=== PATIENT | male | born 1985 | race American Indian/Alaskan Native ===

== ENCOUNTER 2017-01-09 15:57 | Emergency (ER) | payer OTHER ==
--- NOTE | 2017-01-09 16:19 | Emergency Department Report ---
Chief Complaint: Nausea/Vomiting/Diarrhea Stated Complaint: NAUSEA/VOMITING/DIARRHEA Time Seen by Provider: 01/09/17 16:16 - HPI History of Present Illness: pt c/o n/v/d x 2 weeks PT states he is throwing up at least 3 times a day - ROS Review of Systems: + n/v/d -dysuria - Exam Physical Exam: PT looks well, non toxic gcs 15 abd soft, no rebound, no guarding + lower abd tenderness MSE screening note: Focused history and physical exam performed. Due to findings the following was ordered: labs ED Disposition for MSE Condition: Stable
[2017-01-09 16:23] VITALS: BP 146/83
[2017-01-09] MEDS ORDERED: NACL 0.9% 1000 ML 1,000 ML IV ONE (17:16)
--- NOTE | 2017-01-09 17:17 | Emergency Department Report ---
ED N/V/D HPI - General Chief complaint: Nausea/Vomiting/Diarrhea Stated complaint: NAUSEA/VOMITING/DIARRHEA Time Seen by Provider: 01/09/17 16:16 Source: patient Mode of arrival: Ambulatory Limitations: No Limitations - History of Present Illness Initial comments: Patient reports nausea and vomiting and diarrhea for 2 weeks. Denies any blood in his stool or vomiting. He states that his abdomen is from him falling out. Denies any painful urination, hematuria, urgency or frequency. Denies any fever or chills. He stated that he vomited 2-3 times today. One diarrhea stool yesterday. No [id number] medication taken and his pain to his abdomen is 10 out of 10. He said it only hurts when he vomits and it feels sore. He denies EtOH use. MD complaint: nausea, vomiting, diarrhea, abdominal pain Onset/Timin -: week(s) Description of Vomiting: food contents Description of Diarrhea: water Associated Abdominal Pain: Yes Location: [place] (only vomited) Radiation: none Pain Scale: 10 Quality: other (sore) Consistency: intermittent Improves with: rest Worsens with: vomiting Context: possible food poisoning Associated Symptoms: loss of appetite, nausea/vomiting. denies: myalgias, chest pain, cough, diaphoresis, fever/chills, headaches, malaise, rash, dysuria , shortness of breath, syncope, weakness - Related Data Previous Rx's Medication Instructions Recorded Last Taken Type Butalbit/Acetamin/Caff/Codeine 1 cap PO Q8HR PRN #15 cap 07/14/16 Unknown Rx [Fioricet/Codeine 09-805-52-30] Promethazine [Phenergan TAB] 25 mg PO Q8HR PRN #12 tab 01/09/17 Unknown Rx Allergies Allergy/AdvReac Type Severity Reaction Status Date / Time No Known Allergies Allergy Unverified 05/21/16 17:45 ED Review of Systems ROS: Stated complaint: NAUSEA/VOMITING/DIARRHEA Other details as noted in HPI Comment: All other systems reviewed and negative Constitutional: no symptoms reported Eyes: denies: eye pain, eye discharge Respiratory: no symptoms reported Cardiovascular: denies: chest pain, palpitations, edema, syncope Gastrointestinal: denies: abdominal pain, nausea, vomiting, diarrhea, constipation, hematemesis, melena, hematochezia Genitourinary: denies: urgency, dysuria, frequency, hematuria, discharge, testicular pain, testicular mass Musculoskeletal: denies: back pain, arthralgia Skin: denies: rash Neurological: denies: headache, weakness, numbness, paresthesias, confusion, abnormal gait, vertigo ED Past Medical Hx - Past Medical History Previous Medical History?: Yes Hx Headaches / Migraines: Yes Additional medical history: Ocassional headaches - Surgical History Past Surgical History?: No - Family History Family history: no significant - Social History Smoking Status: Never Smoker Substance Use Type: Marijuana - Medications Home Medications: Home Medications Medication Instructions Recorded Confirmed Last Taken Type Butalbit/Acetamin/Caff/Codeine 1 cap PO Q8HR PRN #15 cap 07/14/16 Unknown Rx [Fioricet/Codeine 20-912-07-30] Promethazine [Phenergan TAB] 25 mg PO Q8HR PRN #12 tab 01/09/17 Unknown Rx ED Physical Exam - General Limitations: No Limitations General appearance: alert, in no apparent distress - Head Head exam: Present: atraumatic, normocephalic, normal inspection - Eye Eye exam: Present: normal appearance, PERRL, EOMI. Absent: conjunctival injection, nystagmus, periorbital swelling, periorbital tenderness Pupils: Present: normal accommodation - ENT ENT exam: Present: normal exam, normal orophraynx, mucous membranes moist, TM's normal bilaterally, normal external ear exam - Neck Neck exam: Present: normal inspection, full ROM. Absent: tenderness, meningismus, lymphadenopathy - Respiratory Respiratory exam: Present: normal lung sounds bilaterally. Absent: respiratory distress, chest wall tenderness - Cardiovascular Cardiovascular Exam: Present: regular rate, normal rhythm, normal heart sounds - GI/Abdominal GI/Abdominal exam: Present: soft, distended (mid abdomen), normal bowel sounds. Absent: tenderness, guarding, rebound, rigid - Extremities Exam Extremities exam: Present: normal inspection, full ROM, normal capillary refill. Absent: tenderness, pedal edema, joint swelling, calf tenderness - Back Exam Back exam: Present: normal inspection, full ROM. Absent: tenderness, CVA tenderness (R), CVA tenderness (L), muscle spasm, paraspinal tenderness, vertebral tenderness, rash noted - Neurological Exam Neurological exam: Present: alert, oriented X3, normal gait, reflexes normal. Absent: motor sensory deficit - Psychiatric Psychiatric exam: Present: normal affect, normal mood - Skin Skin exam: Present: warm, dry, intact, normal color. Absent: rash ED Course Vital Signs 01/09/17 16:16 Temperature 98.3 F Pulse Rate 73 Respiratory 16 Rate Blood Pressure 146/83 O2 Sat by Pulse 100 Oximetry - Reevaluation(s) Reevaluation #1: 01/09/17 20:15 Upon reevaluation of the abdomen patient has no changes in abdominal exam. Patient given 1 L of IV fluid and is able to tolerate oral liquids in the emergency room. He was also given Zofran 4 mg IV. ED Medical Decision Making - Lab Data Result diagrams: 01/09/17 17:28 01/09/17 17:28 Lab Results 01/09/17 01/09/17 01/09/17 Range/Units 17:28 17:28 17:30 WBC 8.9 (4.5-11.0) K/mm3 RBC 4.43 (3.65-5.03) M/mm3 Hgb 14.2 (11.8-15.2) gm/dl Hct 42.2 (35.5-45.6) % MCV 95 H (84-94) fl MCH 32 (28-32) pg MCHC 34 (32-34) % RDW 13.1 L (13.2-15.2) % Plt Count 173 (140-440) K/mm3 Lymph % (Auto) 24.7 (13.4-35.0) % [place] % (Auto) 4.1 (0.0-7.3) % Eos % (Auto) 0.9 (0.0-4.3) % Baso % (Auto) 0.3 (0.0-1.8) % Lymph # 2.2 (1.2-5.4) K/mm3 [place] # 0.4 (0.0-0.8) K/mm3 Eos # 0.1 (0.0-0.4) K/mm3 Baso # 0.0 (0.0-0.1) K/mm3 Seg Neutrophils % 70.0 (40.0-70.0) % Seg Neutrophils # 6.2 (1.8-7.7) K/mm3 Sodium 141 (137-145) mmol/L Potassium 4.3 (3.6-5.0) mmol/L Chloride 100.1 (98-107) mmol/L Carbon Dioxide 29 (22-30) mmol/L Anion Gap 16 mmol/L BUN 13 (9-20) mg/dL Creatinine 1.2 (0.8-1.5) mg/dL Estimated GFR > 60 ml/min BUN/Creatinine Ratio 10.83 % Glucose 98 (75-100) mg/dL Calcium 9.3 (8.4-10.2) mg/dL Total Bilirubin 0.20 (0.1-1.2) mg/dL AST 19 (5-40) units/L ALT 8 (7-56) units/L Alkaline Phosphatase 42 (35-129) units/L Total Protein 7.6 (6.3-8.2) g/dL Albumin 4.3 (3.9-5) g/dL Albumin/Globulin Ratio 1.3 % Lipase 17 (13-60) units/L Urine Color Yellow (Yellow) Urine Turbidity Clear (Clear) Urine pH 6.0 (5.0-7.0) Ur Specific [place] 1.024 (1.003-1.030) Urine Protein <15 mg/dl (Negative) mg/dL Urine Glucose (UA) Neg (Negative) mg/dL Urine Ketones Tr (Negative) mg/dL Urine Blood Neg (Negative) Urine Nitrite Neg (Negative) Urine Bilirubin Neg (Negative) Urine Urobilinogen < 2.0 (<2.0) mg/dL Ur Leukocyte Esterase Neg (Negative) Urine WBC (Auto) < 1.0 (0.0-6.0) /HPF Urine RBC (Auto) 5.0 (0.0-6.0) /HPF U Epithel Cells (Auto) < 1.0 (0-13.0) /HPF Urine Mucus Few /HPF - Radiology Data Radiology results: report reviewed CT scan of the abdomen and pelvis with IV contrast shows appendix appeared within normal limits, no free fluid or inflammatory changes are seen in the abdomen or pelvis. Liver ,gallbladder, pancreas, spleen and adrenal glands appear normal aorta is normal in caliber. Bladder is decompressed. - Medical Decision Making Course: I discussed the patient with lab results and told that his hearing showed carious teeth which showed at least mildly dehydrated but otherwise all labs are within normal limits including his hearing. Discussed with him that his CT scan was normal. Patient with nausea vomiting diarrhea and abdominal pain from vomiting and also 2 weeks. Treated in emergency room one half normal saline, Zofran 4 mg IV and Toradol 30 mg IV. He tolerated oral liquids and he said he felt better. She has no episode of nausea vomiting or diarrhea in emergency room. Discharged home with prescription for Phenergan and to follow- up with GI doctor in 2-3 days. Critical care attestation.: If time is entered above; I have spent that time in minutes in the direct care of this critically ill patient, excluding procedure time. ED Disposition Clinical Impression: Nausea vomiting and diarrhea, Abdominal pain in male Disposition: DC-01 TO HOME OR SELFCARE Is pt being admited?: No Does the pt Need Aspirin: No Condition: Stable Instructions: Abdominal Pain (ED), Acute Nausea and Vomiting (ED), Acute Diarrhea (ED), Gastroenteritis (ED), Nutrition Tips for Relief of Diarrhea (ED) Additional Instructions: over the next 72 hours, eat a banana, rice, applesauce and toast. Over the next Please avoid acidic food. Follow-up with doctor as recommended Increase fluid intake. Prescriptions: Promethazine [Phenergan TAB] 25 mg PO Q8HR PRN #12 tab PRN Reason: Nausea Referrals: PRIMARY CARE, [Primary Care Provider] - 2-3 Days [facility] [Provider Group] - 2-3 Days Forms: Accompanied Note, Work/School Release Form(ED)
[2017-01-09 17:47] LABS: Basophils % (Auto) 0.3 % (0.0-1.8); Eosinophils % (Auto) 0.9 % (0.0-4.3); Hematocrit 42.2 % (35.5-45.6); Hemoglobin 14.2 gm/dl (11.8-15.2); Mean Corpuscular HGB Conc 34 % (32-34); Mean Corpuscular Hemoglobin 32 pg (28-32); Mean Corpuscular Volume 95 fl (84-94); Platelet Count 173 K/mm3 (140-440); Red Blood Count 4.43 M/mm3 (3.65-5.03); Red Cell Distribution Width 13.1 % (13.2-15.2); White Blood Count 8.9 K/mm3 (4.5-11.0)
[2017-01-09 17:50] LABS: Bilirubin,Urine NEG (Negative); Blood,Urine NEG (Negative); Ketones,Urine TR mg/dL (Negative); Leukocyte Esterase,Urine NEG (Negative); Mucus,Urine FEW /HPF; Nitrite,Urine NEG (Negative); Protein,Urine <15 mg/dL mg/dL (Negative); Urobilinogen,Urine < 2.0 mg/dL (<2.0); WBC,Urine < 1.0 /HPF (0.0-6.0)
[2017-01-09 17:59] LABS: Alanine Aminotransferase 8 units/L (7-56); Albumin 4.3 g/dL (3.9-5); Albumin/Globulin Ratio 1.3 %; Alkaline Phosphatase 42 units/L (35-129); Anion Gap 16 mmol/L; BUN/Creatinine Ratio 10.83; Blood Urea Nitrogen 13 mg/dL (9-20); Calcium 9.3 mg/dL (8.4-10.2); Carbon Dioxide 29 mmol/L (22-30); Chloride 100.1 mmol/L (98-107); Glucose 98 mg/dL (75-100); Lipase 17 units/L (13-60); Potassium 4.3 mmol/L (3.6-5.0); Sodium 141 mmol/L (137-145); Total Protein 7.6 g/dL (6.3-8.2)
[2017-01-09] MEDS ORDERED: ZOFRAN IV NR (18:00)
[2017-01-09] MEDS ORDERED: TORADOL IV ONE (18:18)
--- NOTE | 2017-01-09 19:06 | Cat Scan Report ---
FINAL REPORT EXAM: CT ABDOMEN PELVIS W CON HISTORY: abdominal pain TECHNIQUE: Serial axial images through the abdomen and pelvis with coronal and sagittal reconstruction. Intravenous administration of 100 milliliters Omnipaque 300 PRIORS: None. FINDINGS: There is mild atelectasis in the dependent portion of the left lung base. No pleural effusion is seen. The liver, gallbladder, pancreas, spleen and adrenal glands appear within normal limits. There is a hypodense focus in the left kidney which is too small to definitely characterize. Right kidney appears within normal limits. Aorta is normal in caliber. Duplication of the inferior vena cava is noted. Bladder is decompressed. No free fluid. The appendix can be seen series 4, image 62 for example. It appears normal in caliber. No gross bowel abnormality is identified. No acute osseous abnormality is identified. IMPRESSION: 1. Appendix appears within normal limits. 2. No free fluid or inflammatory changes are seen in the abdomen or pelvis.
== END 2017-01-09 21:14 | disposition home or self-care (01) ==
LOC: ED 15:57
DX: R11.2 Nausea with vomiting, unspecified (principal); R10.9 Unspecified abdominal pain; R19.7 Diarrhea, unspecified; F12.10 Cannabis abuse, uncomplicated
CPT/HCPCS: 36415; 74177; 80053; 81001; 83690; 85025; 96361; 96374; 96375; 99284; J1885; J2405; J7030; Q9967; 87086

== ENCOUNTER 2017-04-27 08:35 | Emergency (ER) | payer SELFPAY ==
[2017-04-27] MEDS ORDERED: BENADRYL IV ONE (11:20)
[2017-04-27] MEDS ORDERED: NACL 0.9% 1000 ML 1,000 ML IV ONE (11:20)
[2017-04-27] MEDS ORDERED: REGLAN IV ONE (11:20)
--- NOTE | 2017-04-27 11:49 | Emergency Department Report ---
ED Headache HPI - General Chief Complaint: Headache Stated Complaint: SOB,HEADACHE Time Seen by Provider: 04/27/17 11:07 Source: patient Exam Limitations: no limitations - History of Present Illness Initial Comments: This is a 32-year-old male nontoxic, well nourished in appearance, no acute signs of distress presents to the ED complaining of chronic headache. Agitated today's ago he developed headache again taking Excedrin Migraine with minimal to no relief. Patient denies any trauma to the region. Denies loss consciousness. Denies stiff neck, blurry vision, chest pain, shortness of breath, numbness, tingling, fever, chills, abdominal pain, nausea or vomiting. Patient describes headache as diffuse level of. Patient denies thunderclap headache. Patient denies worse headache ever and stated this is a normal headache for him. Denies any drug allergies. Past medical history includes migraine headaches. Timing/Duration: episodic Quality: moderate Head Injury Location: other (diffuse) Recent Head Trauma: no recent headache/trauma, frequent headaches, chronic headaches, occasional headaches Associated Symptoms: denies symptoms. denies: confusion, fatigue, facial pain, fever/chills, flushing, loss of consciousness, nausea/vomiting, nasal congestion , nasal drainage, numbness in legs/feet, rash, seizures, sinus infection, stiff neck, vision changes, weakness Allergies/Adverse Reactions: Allergies No Known Allergies Allergy (Unverified 05/21/16 17:45) Home Medications: Ambulatory Orders Butalbit/Acetamin/Caff/Codeine [Fioricet/Codeine 05-796-34-30] 1 cap PO Q8HR PRN #15 cap 07/14/16 Promethazine [Phenergan TAB] 25 mg PO Q8HR PRN #12 tab 01/09/17 Butalb/Acetamin/Caff 50-325-40 [Fioricet] 1 tab PO Q6HR PRN #30 tab 04/27/17 ED Review of Systems ROS: Stated complaint: SOB,HEADACHE Other details as noted in HPI Constitutional: denies: chills, fever Eyes: denies: eye pain, eye discharge, vision change ENT: denies: ear pain, throat pain Respiratory: denies: cough, shortness of breath, wheezing Cardiovascular: denies: chest pain, palpitations Endocrine: no symptoms reported Gastrointestinal: denies: abdominal pain, nausea, diarrhea Genitourinary: denies: urgency, dysuria Musculoskeletal: denies: back pain, joint swelling, arthralgia Skin: denies: rash, lesions Neurological: denies: headache, weakness, paresthesias Psychiatric: denies: anxiety, depression Hematological/Lymphatic: denies: easy bleeding, easy bruising ED Past Medical Hx - Past Medical History Previous Medical History?: Yes Hx Headaches / Migraines: Yes Additional medical history: Ocassional headaches - Surgical History Past Surgical History?: No - Social History Smoking Status: Current Every Day Smoker Substance Use Type: None - Medications Home Medications: Home Medications Medication Instructions Recorded Confirmed Last Taken Type Butalbit/Acetamin/Caff/Codeine 1 cap PO Q8HR PRN #15 cap 07/14/16 Unknown Rx [Fioricet/Codeine 22-887-17-30] Promethazine [Phenergan TAB] 25 mg PO Q8HR PRN #12 tab 01/09/17 Unknown Rx Butalb/Acetamin/Caff 50-325-40 1 tab PO Q6HR PRN #30 tab 04/27/17 Unknown Rx [Fioricet] ED Physical Exam - General Limitations: No Limitations General appearance: alert, in no apparent distress - Head Head exam: Present: atraumatic, normocephalic - Eye Eye exam: Present: normal appearance, PERRL, EOMI. Absent: scleral icterus, conjunctival injection, nystagmus, periorbital swelling, periorbital tenderness Pupils: Present: normal accommodation. Absent: unequal, miosis - ENT ENT exam: Present: normal exam, normal orophraynx, mucous membranes moist, TM's normal bilaterally, normal external ear exam - Neck Neck exam: Present: normal inspection, full ROM. Absent: tenderness, meningismus, lymphadenopathy, thyromegaly - Respiratory Respiratory exam: Present: normal lung sounds bilaterally. Absent: respiratory distress, wheezes, rales, rhonchi, stridor, chest wall tenderness, accessory muscle use, decreased breath sounds, prolonged expiratory - Cardiovascular Cardiovascular Exam: Present: regular rate, normal rhythm, normal heart sounds. Absent: bradycardia, tachycardia, irregular rhythm, systolic murmur, diastolic murmur, rubs, gallop - GI/Abdominal GI/Abdominal exam: Present: soft, normal bowel sounds. Absent: distended, tenderness, guarding, rebound, rigid, diminished bowel sounds - Rectal Rectal exam: Present: deferred - Extremities Exam Extremities exam: Present: normal inspection, full ROM, normal capillary refill. Absent: tenderness, pedal edema, joint swelling, calf tenderness - Back Exam Back exam: Present: normal inspection, full ROM. Absent: tenderness, CVA tenderness (R), CVA tenderness (L), muscle spasm, paraspinal tenderness, vertebral tenderness, rash noted - Neurological Exam Neurological exam: Present: alert, oriented X3, CN II-XII intact, normal gait, reflexes normal - Expanded Neurological Exam Expanded Patient oriented to: Present: person, place, time Speech: Present: fluid speech Cranial nerves: EOM's Intact: Normal, Gag Reflex: Normal, Tongue Deviation: Normal, Nystagmus: Normal, Facial Sensation: Normal, Facial Palsy with Forehead Movement: Normal, Facial Palsy without Forehead Movement: Normal Cerebellar function: Finger to Nose: Normal, Heel to Pires: Normal, Romberg: Normal Upper motor neuron: Praveen Neglect: Normal, Pronator Drift: Normal, Babinski Sign : Normal, Sensory Extinction: Normal Sensory exam: Upper Extremity Light Touch: Normal, Upper Extremity Pin Prick: Normal, Upper Extremity Temperature: Normal, UE 2 Point Discrimination: Normal, Lower Extremity Light Touch: Normal, Lower Extremity Pin Prick: Normal, Lower Extremity Temperature: Normal, LE 2 Point Discrimination: Normal Motor strength exam: RUE: 5, LUE: 5, RLE: 5, LLE: 5 DTR: bicep (R): 2+, bicep (L): 2+, tricep (R): 2+, tricep (L): 2+, knee (R): 2+ , knee (L): 2+, ankle (R): 2+, ankle (L): 2+ Best Eye Response (Raj): (4) open spontaneously Best Motor Response (Raj): (6) obeys commands Best Verbal Response (Raj): (5) oriented [place] Total: 15 - Psychiatric Psychiatric exam: Present: normal affect, normal mood - Skin Skin exam: Present: warm, dry, intact, normal color. Absent: rash ED Course Vital Signs 04/27/17 04/27/17 08:46 11:53 Temperature 98 F Pulse Rate 82 Respiratory 16 Rate Blood Pressure 134/84 O2 Sat by Pulse 99 Oximetry - Reevaluation(s) Reevaluation #1: 04/27/17 11:47 Patient is speaking in full sentences with no signs of distress noted. Reevaluation #2: 04/27/17 13:09 Patient stated headache is not subsided after medical treatment. CT of head order and pending results. ED Medical Decision Making - Medical Decision Making Patient is stable and was examined by me. This is a 32-year-old male that presents with chronic headaches. Patient received Benadryl, Pepcid and normal saline IV. Headache has subsided after Benadryl, Pepcid and normal saline so a CT scan has been ordered and dictated by radiologist with normal results and no abnormalities. Patient notified of CT results with noted. Patient then received morphine in the ED. Patient stated headache has subsided after morphine and denies any current headache. Patient's boss is here with the name of Mainor as that he'll go the patient home after discharge. Patient received Fioricet at discharge with a follow-up with a neurologist and primary care doctor. Patient was instructed to follow-up with a primary care doctor in 3-5 days or if symptoms worsen and continue return to emergency room as soon as possible possible. At time time of discharge, the patient does not seem toxic or ill in appearance. No acute signs of distress noted. Patient agrees to discharge treatment plan of care. No further questions noted by the patient. Critical care attestation.: If time is entered above; I have spent that time in minutes in the direct care of this critically ill patient, excluding procedure time. ED Disposition Clinical Impression: Headache Qualifiers: Headache type: unspecified Headache chronicity pattern: chronic headache Intractability: not intractable Qualified Code(s): R51 - Headache Disposition: DC-01 TO HOME OR SELFCARE Is pt being admited?: No Does the pt Need Aspirin: No Condition: Stable Instructions: Butalbital/Acetaminophen/Caffeine (By mouth), Acute Headache (ED) Additional Instructions: Follow-up with a primary care doctor/neurologist in 3-5 days or if symptoms worsen and continue return to emergency room as soon as possible possible. Data operate any machinery after discharged due to sedation/drowsiness of morphine and Benadryl that he received in the ED and had her boss Mainor drive home as instructed. Prescriptions: Butalb/Acetamin/Caff 50-325-40 [Fioricet] 1 tab PO Q6HR PRN #30 tab PRN Reason: Headache Referrals: PRIMARY CAREMD [Primary Care Provider] - 3-5 Days CHARANJIT TEE MD [Staff Physician] - 3-5 Days [facility] [Outside] - 3-[address] [facility] [Outside] - 3-5 Days Forms: Work/School Release Form(ED)
[2017-04-27] MEDS ORDERED: MORPHINE IV ONE (13:15)
[2017-04-27] MEDS ORDERED: MORPHINE ONE (13:20)
--- NOTE | 2017-04-27 13:21 | Cat Scan Report ---
CT scan of head without IV contrast: History: Headache. Findings: Ventricles are normal in size and midline in location. No evidence of acute ischemia, hemorrhage or mass. No extra-axial fluid collection. Normal brainstem and cerebellum Normal sinuses and mastoid air cells. Impression: No acute intracranial abnormality.
[2017-04-27 13:44] VITALS: BP 131/93
== END 2017-04-27 13:44 | disposition home or self-care (01) ==
LOC: ED 08:35
DX: G43.909 Migraine, unspecified, not intractable, without status migrainosus (principal); F17.210 Nicotine dependence, cigarettes, uncomplicated
CPT/HCPCS: 70450; 96361; 96374; 96375; 99284; J1200; J2270; J2765; J7030

== ENCOUNTER 2017-08-19 03:31 | Emergency (ER) | payer SELFPAY ==
[2017-08-19 04:08] VITALS: BP 121/82
[2017-08-19] MEDS ORDERED: TYLENOL ONE (05:19)
[2017-08-19] MEDS ORDERED: TYLENOL PO ONE (05:23)
--- NOTE | 2017-08-19 06:15 | XRay Report ---
FINAL REPORT EXAM: XR SPINE LUMBOSACRAL 2-3V HISTORY: fall TECHNIQUE: Three views of the lumbar spine were submitted. FINDINGS: The disc heights and alignment appear normal. There is no evidence of fracture. The SI joints appear normal. There are phleboliths along the floor of the pelvis. IMPRESSION: Within normal limits
--- NOTE | 2017-08-19 06:15 | XRay Report ---
FINAL REPORT EXAM: XR SPINE THORACIC 2V HISTORY: fall TECHNIQUE: AP and lateral views of the thoracic spine were obtained. FINDINGS: The disc heights and alignment appear normal. There is no evidence of fracture. The soft tissue lines are well maintained IMPRESSION: Within normal limits.
--- NOTE | 2017-08-19 06:15 | XRay Report ---
FINAL REPORT EXAM: XR SPINE CERVICAL 2-3V HISTORY: neck pain post fall TECHNIQUE: Three views of the cervical spine were submitted. FINDINGS: The vertebral bodies are normal height alignment with preservation of the disc spaces. The prevertebral soft tissues and C1-C2 articulation appear intact IMPRESSION: Within normal limits
--- NOTE | 2017-08-19 06:16 | Cat Scan Report ---
FINAL REPORT EXAM: CT HEAD/BRAIN WO CON HISTORY: fall TECHNIQUE: Routine axial imaging was obtained of the brain without IV contrast. Comparison is made to the study of 04/27/2017. FINDINGS: There is no evidence of acute stroke or hemorrhage. The ventricular system is appropriate in size and is symmetric. There are no extra-axial fluid collections. The basal cisterns appear normal. The sinuses reveal a small polyp in the left maxillary sinus. The mastoid air cells are well pneumatized. There is no evidence of skull fracture. IMPRESSION: No acute intracranial process.
[2017-08-19] MEDS ORDERED: TORADOL IM ONE (08:01)
--- NOTE | 2017-08-19 08:05 | Emergency Department Report ---
ED Fall HPI - General Chief Complaint: Fall Stated Complaint: HEAD INJURY Time Seen by Provider: 08/19/17 07:52 Source: patient Mode of arrival: Ambulatory Limitations: No Limitations - History of Present Illness Initial Comments: This is a 32-year-old male who was previously unknown to this provider, presents to the ER with left-sided headache after mechanical trip and fall. No preceding symptoms before the fall. Headache is described as pressure-like and lightninglike. To me the patient makes no complaints of numbness or change in sensation. The headache does not have exacerbating or relieving factors. MD Complaint: fall -: Sudden Fall From: standing Fall Witnessed: no Place Fall Occurred: street Loss of Consciousness: none Prolonged Down Time?: no Symptoms Prior to Fall: none Location: head Severity: mild Quality: burning Context: tripped/slipped Associated Symptoms: headache. denies: neck pain, numbness, weakness, chest paint, shortness of breath, abdominal pain, hematuria, lightheaded, vertigo, confusion - Related Data Previous Rx's Medication Instructions Recorded Last Taken Type Butalbit/Acetamin/Caff/Codeine 1 cap PO Q8HR PRN #15 cap 07/14/16 Unknown Rx [Fioricet/Codeine 74-443-69-30] Promethazine [Phenergan TAB] 25 mg PO Q8HR PRN #12 tab 01/09/17 Unknown Rx Butalb/Acetamin/Caff 50-325-40 1 tab PO Q6HR PRN #30 tab 04/27/17 Unknown Rx [Fioricet] Acetaminophen [Tylenol Arthritis] 650 mg PO Q6HR PRN #30 tablet.er 08/19/17 Unknown Rx Ibuprofen [Motrin] 600 mg PO Q8H PRN #30 tablet 08/19/17 Unknown Rx Allergies Allergy/AdvReac Type Severity Reaction Status Date / Time No Known Allergies Allergy Unverified 05/21/16 17:45 ED Review of Systems ROS: Stated complaint: HEAD INJURY Other details as noted in HPI ED Past Medical Hx - Past Medical History Hx Headaches / Migraines: Yes Additional medical history: Ocassional headaches - Social History Smoking Status: Current Some Day Smoker - Medications Home Medications: Home Medications Medication Instructions Recorded Confirmed Last Taken Type Butalbit/Acetamin/Caff/Codeine 1 cap PO Q8HR PRN #15 cap 07/14/16 Unknown Rx [Fioricet/Codeine 42-044-17-30] Promethazine [Phenergan TAB] 25 mg PO Q8HR PRN #12 tab 01/09/17 Unknown Rx Butalb/Acetamin/Caff 50-325-40 1 tab PO Q6HR PRN #30 tab 04/27/17 Unknown Rx [Fioricet] Acetaminophen [Tylenol Arthritis] 650 mg PO Q6HR PRN #30 tablet.er 08/19/17 Unknown Rx Ibuprofen [Motrin] 600 mg PO Q8H PRN #30 tablet 08/19/17 Unknown Rx ED Physical Exam - General Limitations: No Limitations General appearance: alert, in no apparent distress - Head Head exam: Present: atraumatic, normocephalic - Eye Eye exam: Present: normal appearance, PERRL, EOMI, other (visual acuity intact to finger counting, color perception, reading at a close distance). Absent: nystagmus - ENT ENT exam: Present: normal exam, normal orophraynx, mucous membranes moist, TM's normal bilaterally, normal external ear exam, other (negative nasal septal hematoma. Negative hemotympanum) - Neck Neck exam: Present: normal inspection, full ROM. Absent: tenderness, meningismus - Respiratory Respiratory exam: Present: normal lung sounds bilaterally. Absent: respiratory distress, chest wall tenderness - Cardiovascular Cardiovascular Exam: Present: regular rate, normal rhythm, normal heart sounds. Absent: systolic murmur, diastolic murmur, rubs, gallop - GI/Abdominal GI/Abdominal exam: Present: soft, normal bowel sounds. Absent: distended, tenderness, guarding, rebound, rigid, pulsatile mass - Rectal Rectal exam: Present: deferred - Extremities Exam Extremities exam: Present: normal inspection, full ROM, normal capillary refill , other (pelvis stable. No long bony tenderness. 2+ pulses noted in the bilateral upper, lower extremities. Compartments soft.). Absent: tenderness, pedal edema, joint swelling, calf tenderness - Back Exam Back exam: Present: normal inspection, full ROM. Absent: tenderness, CVA tenderness (R), paraspinal tenderness, vertebral tenderness - Neurological Exam Neurological exam: Present: alert, oriented X3, CN II-XII intact, normal gait, other (Extraocular movements intact. Tongue midline. No facial droop. Facial sensation intact to light touch in the V1, V2, V3 distribution bilaterally. 5 and 5 strength in 4 extremities.. Sensation is intact to light touch in 4 extremities.). Absent: motor sensory deficit - Psychiatric Psychiatric exam: Present: normal affect, normal mood - Skin Skin exam: Present: warm, dry, intact, normal color. Absent: rash ED Course Vital Signs 08/19/17 04:02 Temperature 98.2 F Pulse Rate 67 Respiratory 20 Rate Blood Pressure 121/82 [Left] O2 Sat by Pulse 99 Oximetry ED Medical Decision Making - Lab Data Vital Signs 08/19/17 04:02 Temperature 98.2 F Pulse Rate 67 Respiratory 20 Rate Blood Pressure 121/82 [Left] O2 Sat by Pulse 99 Oximetry - Radiology Data Radiology results: report reviewed, image reviewed Noncontrast CT scan of the brain: No acute disease X-ray of the cervical spine, thoracic spine, lumbar spine, interpreted by radiology and myself: No acute disease - Medical Decision Making Differential diagnosis, including not limited to: Concussion, mechanical fall Assessment and plan: 32-year-old male with history of mechanical fall, to me he denies numbness in the face, but describes nonspecific blurry vision, as well as electric like pain in the left hemicranium. Has a GCS of 15, with an NIH score of 0, physical exam is unremarkable, patient walking without difficulty, has no spinal tenderness.Patient is clinically sober at this time. The cervical spine is cleared through nexus and thai c spine rule. Most likely has mild concussion. Physical exam otherwise unremarkable. Cranial nerves intact and appropriate. Patient given appropriate anticipatory counseling and guidance. Critical care attestation.: If time is entered above; I have spent that time in minutes in the direct care of this critically ill patient, excluding procedure time. ED Disposition Clinical Impression: Fall Disposition: DC-01 TO HOME OR SELFCARE Is pt being admited?: No Does the pt Need Aspirin: No Condition: Stable Instructions: Minor Head Injury (ED) Additional Instructions: Rest and avoid heavy lifting. Avoid strenuous physical activity. Take pain medication as directed. Specifically avoid contact sports such as football, martial arts and do not participate in strenuous physical activities until cleared by her primary care doctor. Follow-up with primary care doctor within the next 10-14 days. Return to the ER with new pain, worsened pain, migration of pain, fevers, chills, lethargy, irritability, projectile vomiting, change in mental status, confusion, inability to tolerate liquid feeds. Prescriptions: Acetaminophen [Tylenol Arthritis] 650 mg PO Q6HR PRN #30 tablet.er PRN Reason: Pain Ibuprofen [Motrin] 600 mg PO Q8H PRN #30 tablet PRN Reason: Pain Referrals: PRIMARY CARE, [Primary Care Provider] - 3-5 Days ALMAS WELDON MD [Staff Physician] - 3-5 Days [facility] [Provider Group] - 3-5 Days
[2017-08-19] MEDS ORDERED: TORADOL ONE (08:12)
== END 2017-08-19 08:18 | disposition home or self-care (01) ==
LOC: ED 03:31
DX: R51 Headache (principal); F17.200 Nicotine dependence, unspecified, uncomplicated
CPT/HCPCS: 70450; 72040; 72070; 72100; 96372; 99284; J1885